=== PATIENT | male | born 1985 | race Hispanic/Latino ===

== ENCOUNTER 2017-07-11 23:09 | Emergency (ER) | payer OTHER, SELFPAY ==
--- NOTE | 2017-07-11 23:46 | RAD ---
CHEST TWO VIEWS: 07/11/17 HISTORY: Shortness of breath. Heart size is within normal limits. Mediastinal structures are unremarkable. The lungs are clear of i nfiltrates. IMPRESSION: No active intrathoracic disease. POS: [facility]
== END 2017-07-12 01:46 | disposition home or self-care (01) ==
LOC: ERS 23:09
DX: J45.901 Unspecified asthma with (acute) exacerbation (principal); F17.210 Nicotine dependence, cigarettes, uncomplicated
CPT/HCPCS: 71020; 87804; 94640; J7620

== ENCOUNTER 2018-08-26 18:50 | Emergency (ER) | payer OTHER, SELFPAY ==
[2018-08-26] MEDS ORDERED: diphenhydrAMINE 50 MG/ML VIAL ONE (20:02)
[2018-08-26] MEDS ORDERED: Metoclopramide HCl 10 MG/2 ML VIAL ONE (20:02)
[2018-08-26 20:12] LABS: #Basophils 0.1 thou/uL (0.0-0.2); #Eosinphils 0.2 thou/uL (0.0-0.7); #Lymphocytes 2.9 thou/uL (1.20-3.40); #Monocytes 0.5 thou/uL (0.11-0.59); #Neutrophils 7.8 thou/uL (1.40-6.50); %Basophils 0.8 % (0.0-1.0); %Eosinophils 1.7 % (0.0-10.0); %Lymphocytes 25.2 % (21.0-51.0); %Monocytes 4.3 % (0.0-10.0); Hemoglobin 16.7 g/dL (14.0-18.0); Mean Corpuscular HGB CONC 33.8 g/dL (32.0-36.0); Mean Corpuscular Hemoglobin 31.8 pg (27.0-31.0); Mean Platelet Volume 9.5 fL (7.4-10.4); Platelet Count 221 thou/uL (130-400); RBC Distribution Width 11.8 % (11.5-14.5); Red Blood Cell (RBC) Count 5.26 mill/uL (4.70-6.10); White Blood Cell (WBC) Count 11.5 thou/uL (4.8-10.8)
--- NOTE | 2018-08-26 20:29 | CT ---
CT OF BRAIN PERFORMED WITHOUT CONTRAST ENHANCEMENT: 08/26/18 HISTORY: Headache for the past few weeks. The ventricular and cisternal system is within normal limits. There is no signs for intracerebral hem orrhage or extra-axial fluid collections. Mastoid air cells and visualized sinuses and clear. IMPRESSION: No acute intracranial abnormalities. POS: [facility]
[2018-08-26 20:36] LABS: ALT (SGPT) 60 U/L (8-55); AST (SGOT) 31 U/L (5-34); Albumin 5.1 g/dL (3.5-5.0); Alkaline Phosphatase 64 U/L (40-150); Anion Gap 15 mmol/L (10-20); BUN (Urea Nitrogen) 15 mg/dL (8.9-20.6); Bilirubin, Total 0.6 mg/dL (0.2-1.2); Calc. Creatinine Clearance 0 mL/min (70-130); Calcium 10.2 mg/dL (7.8-10.44); Carbon Dioxide 26 mmol/L (22-29); Chloride 101 mmol/L (98-107); Estimated GFR-MDRD Greater than 90; Globulin 3.1 g/dL (2.4-3.5); Glucose 94 mg/dL (70-105); Potassium 3.8 mmol/L (3.5-5.1); Protein, Total 8.2 g/dL (6.0-8.3); Sodium 138 mmol/L (136-145)
== END 2018-08-26 21:58 | disposition home or self-care (01) ==
LOC: ERS 18:50
DX: R51 Headache (principal); J45.909 Unspecified asthma, uncomplicated; F17.210 Nicotine dependence, cigarettes, uncomplicated; Z79.899 Other long term (current) drug therapy
CPT/HCPCS: 70450; 80053; 85025; 96365; 96375; J1200; J2765